=== PATIENT | male | born 1960 | race Caucasian/White ===

== ENCOUNTER 2022-08-14 09:15 | Emergency (ER) | payer MEDICARE, OTHER ==
[~2022-08-14] VITALS: Ht 182.9 cm; Wt 79.2 kg
[2022-08-14] MEDS ORDERED: cloNIDine HCL 0.1 MG TAB PO ONE (09:30)
[2022-08-14 09:55] LABS: Basophils # (auto) 0.1 10 ^3/uL (0-0.2); Basophils % (auto) 0.6 % (0.0-2.0); Eosinophils # (auto) 0.3 10 ^3/uL (0-0.8); Eosinophils % (auto) 2.8 % (0.0-7.0); Hematocrit 50.7 % (41.0-53.0); Hemoglobin 17.4 g/dL (13.5-17.5); Lymphocytes # (auto) 1.6 10 ^3/uL (0.4-5.4); Lymphocytes % (auto) 17.7 % (10.0-50.0); Mean Corpuscular Hemoglobin 37.1 pg (28.0-32.0); Mean Corpuscular Hgb Conc. 34.4 g/dL (32.0-36.0); Monocytes # (auto) 0.8 10 ^3/uL (0-1.3); Monocytes % (auto) 9.3 % (0.0-12.0); Neutrophils # (auto) 6.2 10 ^3/uL (1.6-8.6); Neutrophils % (auto) 69.6 % (37.0-80.0); Nucleated Red Blood Cells % 0.1 %; Red Cell Distribution Width 14.9 % (11.8-14.3)
[2022-08-14 10:23] LABS: INR 1.02 (0.9-1.15); Partial Thromboplastin Time 32.1 sec (24.6-33.4)
[2022-08-14 10:51] LABS: Albumin 3.1 g/dL (3.4-5.0); BUN/Creatinine Ratio 12.3 (10.0-20.0); Magnesium 1.7 mg/dL (1.6-2.6); Potassium 3.6 mmol/L (3.5-5.1)
[2022-08-14 10:54] LABS: Bilirubin, Total 2.4 mg/dL (0.2-1.0); Total Protein 6.2 g/dL (6.4-8.2)
[2022-08-14] MEDS ORDERED: IOHEXOL 350 MG/ML 100ML IJ ONE (11:22)
[2022-08-14 15:00] VITALS: BP 138/95
== END 2022-08-14 14:42 | disposition home or self-care (01) ==
LOC: ER 09:15
DX: R07.89 Other chest pain (principal); R06.02 Shortness of breath; Z88.0 Allergy status to penicillin; Z79.899 Other long term (current) drug therapy
CPT/HCPCS: 36415; 71045; 71275; 80053; 83735; 83880; 84443; 84484; 85025; 85379; 85610; 85730; 93005; 99285; Q9967